=== PATIENT | female | born 1985 | race Two or more races ===

== ENCOUNTER 2016-04-02 12:10 | Observation (INO) | payer MEDICAID ==
[~2016-04-02] VITALS: Ht 170.2 cm; Wt 91.2 kg
[~2016-04-02 12:10] MED LIST: ALBU18; HYDR-2616; PSEU60TA26; TRAM50TA2; ZOLP10TA6
[2016-04-02] MEDS ORDERED: BETAMETHASONE ACET (6MG/ML) 5ML VIAL IM SCH (13:00)
== END 2016-04-02 14:11 | disposition home or self-care (01) | DRG 566 ==
LOC: LDRP 12:10 → EDUNIT# 12:10
PROVIDERS: ADMIT Specialist; ATTEND Specialist
DX: O26.893 Other specified pregnancy related conditions, third trimester (principal); Z3A.32 32 weeks gestation of pregnancy
CPT/HCPCS: 59025; 76818; 81002; 96372; G0378; J0702

== ENCOUNTER 2016-04-03 11:50 | Observation (INO) | payer MEDICAID ==
[~2016-04-03] VITALS: Ht 170.2 cm; Wt 91.2 kg
[2016-04-03] MEDS ORDERED: TERBUTALINE SULFATE 1 MG/ML 1ML VIAL SC ONE (12:48)
[2016-04-03] MEDS ORDERED: TERBUTALINE SULFATE 1 MG/ML 1ML VIAL SC SCH (13:00)
[2016-04-03] MEDS ORDERED: BETAMETHASONE ACET (6MG/ML) 5ML VIAL IM SCH (22:00)
== END 2016-04-03 13:00 | disposition left against medical advice (07) | DRG 563 ==
LOC: EDUNIT# 11:50 → LDRP 11:50
PROVIDERS: ADMIT Obstetrics & Gynecology; ATTEND Obstetrics & Gynecology
DX: O60.03 Preterm labor without delivery, third trimester (principal); Z3A.32 32 weeks gestation of pregnancy
CPT/HCPCS: G0378; J3105; 59025; 81002; 96372

== ENCOUNTER 2016-05-09 09:10 | Inpatient (IN) | payer MEDICAID ==
[~2016-05-09] VITALS: Ht 170.2 cm; Wt 95.3 kg
[2016-05-09] MEDS ORDERED: SODIUM CHLORIDE 0.9% 1,000 ML IV SCH (09:45)
[2016-05-09] MEDS ORDERED: cefTRIAXone 1GM/50ML D5W 50 ML IV ONE (09:45)
[2016-05-09] MEDS: ACETAMINOPHEN 325 MG TAB PO PRN ×2 (10:04→17:58)
[2016-05-09 10:26] LABS: Basophils # (auto) 0 uL; Eosinophils # (auto) 0 uL; Eosinophils % (auto) 0.2 % (0.0-7.0); Hematocrit 33.3 % (36.0-46.0); Hemoglobin 11.2 g/dL (12.2-16.2); Lymphocytes # (auto) 0.9 uL; Lymphocytes % (auto) 7.9 % (10.0-50.0); Mean Corpuscular Hemoglobin 27.2 pg (28.0-32.0); Mean Corpuscular Hgb Conc. 33.7 g/dL (32.0-36.0); Mean Corpuscular Volume 80.7 fL (80.0-100.0); Mean Platelet Volume 9.1 fL (7.4-10.4); Monocytes # (auto) 0.6 uL; Monocytes % (auto) 5.4 % (0.0-12.0); Neutrophils # (auto) 10.2 uL; Neutrophils % (auto) 86.5 % (37.0-80.0); Platelet Count (auto) 205 10^3/uL (140-450); Red Cell Distribution Width 14.5 % (11.6-16.0); White Blood Cell 11.7 10^3/uL (4.4-10.8)
[2016-05-09 10:36] LABS: Urine Bilirubin Negative (Negative); Urine Blood Negative /uL (Negative); Urine Color Yellow (Yellow); Urine Glucose Normal (Normal); Urine Mucus FEW (None Seen); Urine Nitrite Negative (Negative); Urine RBC 1 /hpf (0 - 4); Urine Squamous Epithelial Cell FEW /hpf (<5); Urine Urobilinogen Normal (Negative); Urine pH 6.5 (5.0-8.0)
[2016-05-09 10:38] LABS: Urine Ketone 3+ (Negative)
[2016-05-09] MEDS ORDERED: MAGNESIUM SULFATE 40MG/ML 1,000 ML IV ONE (12:15)
[2016-05-09] MEDS: SODIUM CHLORIDE 0.9% 1,000 ML IV SCH (12:16)
[2016-05-09] MEDS ORDERED: MAGNESIUM SULFATE 40MG/ML 1,000 ML IV SCH (12:16)
[2016-05-09] MEDS ORDERED: METHYLERGONOVINE MALEATE 0.2 MG/ML AMP IM PRN (12:45)
[2016-05-09] MEDS ORDERED: CARBOPROST TROMETHAMINE 250 MCG/1ML VIAL IM PRN (12:45)
[2016-05-09] MEDS ORDERED: PHISODERM TOP SOLN 240ML BTL TOP PRN (12:45)
[2016-05-09] MEDS ORDERED: DERMOPLAST 60ML BOTTLE TOP PRN (12:45)
[2016-05-09] MEDS ORDERED: PROMETHAZINE HCL 25 MG/ML 1ML IV PRN (12:45)
[2016-05-09] MEDS ORDERED: WITCH HAZEL-GLYCERIN PAD TOP PRN (12:45)
[2016-05-09] MEDS ORDERED: NALBUPHINE HCL 10 MG/1ml INJECTION IV PRN (12:45)
[2016-05-09 13:30] LABS: Albumin 2.2 g/dL (3.4-5.0); BUN/Creatinine Ratio 6.8; Calcium 7.5 mg/dL (8.5-10.1)
[2016-05-09 13:32] LABS: INR 0.91 (0.9-1.15); Partial Thromboplastin Time 26.1 sec (22.64-33.71); Prothrombin Time 9.4 sec (9.37-12.3)
[2016-05-09 13:41] LABS: Total Protein 5.8 g/dL (6.4-8.2)
[2016-05-09 13:47] LABS: Potassium 2.8 mmol/L (3.5-5.1)
[2016-05-09] MEDS ORDERED: POTASSIUM CHL 20MEQ/100ML 100 ML IV ONE (14:15)
[2016-05-09] MEDS: POTASSIUM CHL 20MEQ/100ML 100 ML IV SCH (14:47)
[2016-05-09] MEDS ORDERED: LACT. RINGERS/OXYTOCIN 20UNITS 1,000 ML IV SCH (15:24)
[2016-05-09] MEDS ORDERED: TERBUTALINE SULFATE 1 MG/ML 1ML VIAL SC ONE (15:30)
[2016-05-09] MEDS ORDERED: PREN-96 PO (16:23)
[2016-05-09] MEDS ORDERED: AMPICILLIN SOD 1 GM VL ONE (19:22)
[2016-05-09 20:18] LABS: Potassium 3.1 mmol/L (3.5-5.1)
[2016-05-09] MEDS ORDERED: fentaNYL CITRATE 100 MCG/2 ML VL ONE (20:58)
[2016-05-09] MEDS ORDERED: ROCURONIUM 10MG/ML 10ML VIAL IV ONE (20:58)
[2016-05-09] MEDS ORDERED: MIDAZOLAM HCL 1MG/1ML-2 ML VIAL ONE (21:06)
[2016-05-09] MEDS ORDERED: OXYTOCIN 10UNIT/ML 1ML VIAL ONE (21:58)
[2016-05-09] MEDS: LACTATED RINGER'S 1,000 ML IV SCH (21:59)
[2016-05-09] MEDS ORDERED: ONDANSETRON HCL 4 MG/2 ML VIAL IV PRN (22:00)
[2016-05-09] MEDS: GENTAMICIN SULFATE 80 MG in D5W 5% 100 ML IV SCH (22:00)
[2016-05-09] MEDS ORDERED: HYDROmorphone HCL 2 MG/ML VL ONE (22:10)
[2016-05-09] MEDS ORDERED: ePHEDrine SULFATE 50 MG/ML AMP IV PRN (22:15)
[2016-05-09] MEDS ORDERED: hydrALAZINE HCL 20 MG/ML VL IV PRN (22:15)
[2016-05-09] MEDS ORDERED: ONDANSETRON HCL 4 MG/2 ML VIAL IV ONE (22:15)
[2016-05-09] MEDS: HYDROmorphone HCL 2 MG/ML VL IV PRN ×2 (22:17→22:33)
[2016-05-09] MEDS: LEVETIRACETAM INJ 500 MG in SODIUM CHL 0.9% 100 ML IV SCH (23:00)
[2016-05-09 23:10] VITALS: BP 100/60
[2016-05-10] VITALS (11 sets, daily range): BP systolic 85–117; BP diastolic 44–70
[2016-05-10] MEDS: POTASSIUM CHL 20MEQ/100ML 100 ML IV SCH (01:00)
[2016-05-10] MEDS: SODIUM CHLORIDE 0.9% 1,000 ML IV SCH ×2 (01:36→20:16)
[2016-05-10] MEDS: HYDROmorphone HCL 2 MG/ML VL IV PRN ×2 (02:15→07:29)
[2016-05-10] MEDS: AMPICILLIN INJ 1 GM in SODIUM CHL 0.9% 50 ML IV SCH ×4 (03:00→20:18)
[2016-05-10] MEDS ORDERED: AMPICILLIN SOD 1 GM VL ONE (03:25)
[2016-05-10] MEDS: GENTAMICIN SULFATE 80 MG in D5W 5% 100 ML IV SCH (05:58)
[2016-05-10 06:30] LABS: Basophils # (auto) 0 uL; Basophils % (auto) 0.2 % (0.0-2.0); Eosinophils # (auto) 0 uL; Hematocrit 32.8 % (36.0-46.0); Hemoglobin 10.9 g/dL (12.2-16.2); Lymphocytes % (auto) 7.2 % (10.0-50.0); Mean Corpuscular Hgb Conc. 33.2 g/dL (32.0-36.0); Mean Corpuscular Volume 81.5 fL (80.0-100.0); Monocytes # (auto) 0.7 uL; Monocytes % (auto) 4.6 % (0.0-12.0); Neutrophils # (auto) 12.6 uL; Platelet Count (auto) 232 10^3/uL (140-450); Red Cell Distribution Width 14.8 % (11.6-16.0); White Blood Cell 14.3 10^3/uL (4.4-10.8)
[2016-05-10] MEDS: ACETAMINOPHEN 325 MG TAB PO PRN (07:38)
[2016-05-10] MEDS ORDERED: AMPICILLIN SOD 500 MG INJ ONE (08:59)
[2016-05-10 09:41] LABS: Albumin 1.8 g/dL (3.4-5.0); BUN/Creatinine Ratio 4.8; Bilirubin, Total 0.7 mg/dL (0.2-1.0); Calcium 7.2 mg/dL (8.5-10.1); Potassium 3.4 mmol/L (3.5-5.1); Total Protein 5.1 g/dL (6.4-8.2)
[2016-05-10] MEDS ORDERED: DOCUSATE SOD 100 MG CAP PO SCH (10:00)
[2016-05-10] MEDS: LEVETIRACETAM INJ 500 MG in SODIUM CHL 0.9% 100 ML IV SCH ×2 (10:11→22:24)
[2016-05-10] MEDS ORDERED: GENTAMICIN PER PHARMACY 0 ML IV SCH (14:00)
[2016-05-10] MEDS: IBUPROFEN 800 MG TAB PO PRN (15:32)
[2016-05-10] MEDS: HYDROcodone-ACET 5/325MG TAB PO PRN (17:30)
[2016-05-10] MEDS ORDERED: HYDROcodone-ACET 5/325MG TAB PO PRN (17:30)
[2016-05-10] MEDS: GENTAMICIN SULFATE 380 MG in D5W 5% 100 ML IV SCH (17:58)
[2016-05-10] MEDS: LACTATED RINGER'S 1,000 ML IV SCH ×3 (20:16→23:30)
[2016-05-10] MEDS ORDERED: AMPICILLIN INJ 1 GM in SODIUM CHL 0.9% 50 ML IV SCH (21:00)
[2016-05-10] MEDS: DOCUSATE SOD 100 MG CAP PO SCH (22:07)
[2016-05-11] MEDS: HYDROcodone-ACET 5/325MG TAB PO PRN ×3 (01:42→18:58)
[2016-05-11] MEDS: AMPICILLIN INJ 1 GM in SODIUM CHL 0.9% 50 ML IV SCH ×4 (02:09→20:31)
[2016-05-11 03:30] VITALS: BP 101/51
[2016-05-11] MEDS: LACTATED RINGER'S 1,000 ML IV SCH ×3 (05:59→21:59)
[2016-05-11 06:59] LABS: BUN/Creatinine Ratio 5.1; Calcium 7.4 mg/dL (8.5-10.1); Potassium 3.8 mmol/L (3.5-5.1)
[2016-05-11 07:00] VITALS: BP 101/68
[2016-05-11 07:28] LABS: Basophils # (auto) 0 uL; Basophils % (auto) 0.1 % (0.0-2.0); Eosinophils # (auto) 0.1 uL; Eosinophils % (auto) 1.2 % (0.0-7.0); Hematocrit 28.6 % (36.0-46.0); Hemoglobin 9.7 g/dL (12.2-16.2); Lymphocytes # (auto) 1.2 uL; Lymphocytes % (auto) 11.4 % (10.0-50.0); Mean Corpuscular Hemoglobin 27.4 pg (28.0-32.0); Mean Corpuscular Hgb Conc. 33.8 g/dL (32.0-36.0); Mean Platelet Volume 8.8 fL (7.4-10.4); Monocytes # (auto) 0.7 uL; Monocytes % (auto) 6.7 % (0.0-12.0); Neutrophils # (auto) 8.7 uL; Neutrophils % (auto) 80.6 % (37.0-80.0); Platelet Count (auto) 212 10^3/uL (140-450); Red Cell Distribution Width 14.7 % (11.6-16.0); White Blood Cell 10.7 10^3/uL (4.4-10.8)
[2016-05-11 08:00] VITALS: BP 101/68
[2016-05-11] MEDS: IBUPROFEN 800 MG TAB PO PRN (08:54)
[2016-05-11] MEDS: DOCUSATE SOD 100 MG CAP PO SCH ×2 (08:54→22:00)
[2016-05-11] MEDS: LEVETIRACETAM INJ 500 MG in SODIUM CHL 0.9% 100 ML IV SCH (10:00)
[2016-05-11 12:00] VITALS: BP 102/53
[2016-05-11] MEDS: SODIUM CHLOR 0.9% PF (SALINE LOCK) 10ML VIAL IV SCH ×2 (14:00→22:00)
[2016-05-11 16:00] VITALS: BP 101/52
[2016-05-11] MEDS: GENTAMICIN SULFATE 380 MG in D5W 5% 100 ML IV SCH (17:48)
[2016-05-11] MEDS ORDERED: LEVETIRACETAM 500 MG TAB PO SCH (22:00)
[2016-05-11 23:00] VITALS: BP 107/56
[2016-05-12] MEDS: AMPICILLIN INJ 1 GM in SODIUM CHL 0.9% 50 ML IV SCH (02:25)
[2016-05-12 03:30] VITALS: BP 91/58
[2016-05-12] MEDS: HYDROcodone-ACET 5/325MG TAB PO PRN ×2 (03:38→08:21)
[2016-05-12] MEDS: LACTATED RINGER'S 1,000 ML IV SCH (05:59)
[2016-05-12] MEDS: SODIUM CHLOR 0.9% PF (SALINE LOCK) 10ML VIAL IV SCH (06:00)
[2016-05-12 08:00] VITALS: BP 101/53
[2016-05-12] MEDS: DOCUSATE SOD 100 MG CAP PO SCH (08:20)
[2016-05-12 12:00] VITALS: BP 99/52
== END 2016-05-12 13:10 | disposition home or self-care (01) | DRG 540 ==
LOC: OBSVTOIN 09:10 → LDRP 09:10
PROVIDERS: ADMIT Specialist; ATTEND Specialist
PROC: 0UL70CZ Occlusion of Bilateral Fallopian Tubes with Extraluminal Device, Open Approach (ICD-10-PCS; 2016-05-09)
PROC: 10D00Z1 Extraction of Products of Conception, Low, Open Approach (ICD-10-PCS; principal; 2016-05-09 20:55)
DX: O69.81X0 Labor and delivery complicated by cord around neck, without compression, not applicable or unspecified (principal); O41.1230 Chorioamnionitis, third trimester, not applicable or unspecified; O99.324 Drug use complicating childbirth; O99.354 Diseases of the nervous system complicating childbirth; O75.89 Other specified complications of labor and delivery; F15.10 Other stimulant abuse, uncomplicated; O76 Abnormality in fetal heart rate and rhythm complicating labor and delivery; G40.409 Other generalized epilepsy and epileptic syndromes, not intractable, without status epilepticus; O99.284 Endocrine, nutritional and metabolic diseases complicating childbirth; E87.6 Hypokalemia; Z37.0 Single live birth; Z3A.37 37 weeks gestation of pregnancy; Z30.2 Encounter for sterilization; Z79.899 Other long term (current) drug therapy
CPT/HCPCS: 36415; 51702; 59025; 70450; 76818; 80048; 80053; 80170; 81001; 81002; 83735; 84132; 85025; 85610; 85730; 86850; 86900; 86901; 87040; 87086; 96365; 96366; 96374; 96375; G0378; G0434; J0696; J2250; J2405; J2590; J3480; J7060